=== PATIENT | male | born 1955 | race Caucasian/White ===

== ENCOUNTER 2016-10-25 16:38 | Outpatient (CLI) | payer MEDICAID | END 2016-10-25 16:39 | disposition critical access hospital (66) | DX: R46.4 Slowness and poor responsiveness (principal) | CPT/HCPCS: A0425; A0427 ==

== ENCOUNTER 2016-10-25 17:14 | Inpatient (IN) | payer MEDICAID ==
[2016-10-25] MEDS ORDERED: diazePAM INJ 5 MG/ML SYRINGE IVP STA ×3 (17:20→18:39)
[2016-10-25] MEDS ORDERED: FOLIC ACID INJ 1 MG, THIAMINE INJ 100 MG, MAGNESIUM SULFATE 2 GM, MULTIVITAMIN 10 ML in... IV STA ×5 (17:20)
[2016-10-25] MEDS ORDERED: diazePAM INJ 5 MG/ML SYRINGE ONE ×3 (17:33→18:59)
[2016-10-25] MEDS ORDERED: MAGNESIUM SULFATE 2 GRAM 50 ML IV ONE ×2 (17:35→21:23)
[2016-10-25] MEDS ORDERED: THIAMINE 100 MG/1 ML 2 ML MDV ONE (17:35)
[2016-10-25] MEDS ORDERED: DEXTROSE 5%-0.45% NACL 1,000 ML IV ONE (18:15)
[2016-10-25] MEDS ORDERED: ONDANSETRON ODT 4 MG TABLET TL PRN (21:20)
[2016-10-25] MEDS ORDERED: ONDANSETRON 4 MG/2 ML VIAL IVP PRN (21:20)
[2016-10-25] MEDS ORDERED: ACETAMINOPHEN 325 MG TABLET PO PRN (21:20)
[2016-10-25] MEDS ORDERED: chlordiazePOXIDE 25 MG CAPSULE PO PRN (21:23)
[2016-10-25] MEDS ORDERED: LORazepam 2 MG/ML SYRINGE IVP PRN (21:23)
[2016-10-25] MEDS ORDERED: DEXTROSE 5%-0.9% NACL 1,000 ML IV SCH (22:00)
[2016-10-25] MEDS: SODIUM CHLORIDE FLUSH 0.9% 10 ML SYRINGE IVP SCH (22:40)
[2016-10-25] MEDS: FAMOTIDINE 20 MG TABLET PO SCH (22:40)
[2016-10-26] MEDS: diazePAM 5 MG TABLET PO PRN ×3 (00:24→11:28)
[2016-10-26] MEDS: SODIUM CHLORIDE FLUSH 0.9% 10 ML SYRINGE IVP SCH ×3 (05:58→21:05)
[2016-10-26] MEDS ORDERED: MULTIVITAMIN 10 ML, THIAMINE INJ 100 MG, FOLIC ACID INJ 1 MG in SODIUM CHLORIDE 0.9% 1,... IV SCH (09:00)
[2016-10-26] MEDS ORDERED: FAMOTIDINE 20 MG TABLET PO SCH (09:00)
[2016-10-26] MEDS: FAMOTIDINE 20 MG TABLET PO SCH (09:19)
[2016-10-26] MEDS ORDERED: FOLIC ACID 1 MG TABLET PO SCH (10:00)
[2016-10-26] MEDS ORDERED: MULTIVITAMIN TABLET PO SCH (10:00)
[2016-10-26] MEDS: THIAMINE 100 MG TABLET PO SCH (10:27)
[2016-10-26] MEDS: NICOTINE 21 MG PATCH TOP SCH (10:27)
[2016-10-26] MEDS: POLYETHYLENE GLYCOL 3350 17 GM PACKET PO SCH (10:34)
[2016-10-26] MEDS: HYDROcod/ACETAM 5/325 MG TABLET PO PRN ×2 (15:27→20:10)
[2016-10-26] MEDS: SODIUM CHLORIDE FLUSH 0.9% 10 ML SYRINGE IVP PRN (17:46)
[2016-10-26] MEDS: diazePAM INJ 5 MG/ML SYRINGE IVP PRN (17:47)
[2016-10-27] MEDS: SODIUM CHLORIDE FLUSH 0.9% 10 ML SYRINGE IVP SCH ×3 (06:43→22:32)
[2016-10-27] MEDS ORDERED: POTASSIUM PHOSPHATE 21 MMOL in SODIUM CHLORIDE 0.9% 250 ML IV ONE (08:22)
[2016-10-27] MEDS: FAMOTIDINE 20 MG TABLET PO SCH (08:30)
[2016-10-27] MEDS: THIAMINE 100 MG TABLET PO SCH (08:30)
[2016-10-27] MEDS: NICOTINE 21 MG PATCH TOP SCH (08:30)
[2016-10-27] MEDS: POLYETHYLENE GLYCOL 3350 17 GM PACKET PO SCH (08:32)
[2016-10-27] MEDS: MULTIVITAMIN 10 ML, THIAMINE INJ 100 MG, FOLIC ACID INJ 1 MG in SODIUM CHLORIDE 0.9% 1,... IV SCH (08:32)
[2016-10-27] MEDS ORDERED: MAGNESIUM SULFATE 2 GRAM 50 ML IV ONE (14:30)
[2016-10-27] MEDS ORDERED: MAGNESIUM SULFATE 2 GM in SODIUM CHLORIDE 0.9% 50 ML IV ONE (14:30)
[2016-10-28] MEDS ORDERED: MIN OIL/DIMETHICON/COCONUT OIL 92 GM TUBE TOP PRN (00:34)
[2016-10-28] MEDS: SODIUM CHLORIDE FLUSH 0.9% 10 ML SYRINGE IVP PRN ×2 (05:54→20:42)
[2016-10-28] MEDS: SODIUM CHLORIDE FLUSH 0.9% 10 ML SYRINGE IVP SCH ×3 (05:54→20:42)
[2016-10-28] MEDS ORDERED: POTASSIUM CHLORIDE 20 MEQ TABLET PO ONE (08:00)
[2016-10-28] MEDS ORDERED: DOCUSATE SODIUM 250 MG CAPSULE PO ONE (08:30)
[2016-10-28] MEDS ORDERED: SENNA 8.6 MG TABLET PO ONE (08:30)
[2016-10-28] MEDS: MULTIVITAMIN 10 ML, THIAMINE INJ 100 MG, FOLIC ACID INJ 1 MG in SODIUM CHLORIDE 0.9% 1,... IV SCH (08:31)
[2016-10-28] MEDS: POTASSIUM CHLORIDE 10 MEQ CAPSULE PO SCH (08:37)
[2016-10-28] MEDS: THIAMINE 100 MG TABLET PO SCH (08:37)
[2016-10-28] MEDS: FAMOTIDINE 20 MG TABLET PO SCH (08:38)
[2016-10-28] MEDS: NICOTINE 21 MG PATCH TOP SCH (08:38)
[2016-10-28] MEDS: POLYETHYLENE GLYCOL 3350 17 GM PACKET PO SCH (08:39)
[2016-10-28] MEDS: MAGNESIUM SULFATE 2 GRAM 50 ML IV SCH ×2 (10:44→11:54)
[2016-10-28] MEDS ORDERED: POTASSIUM PHOSPHATE 21 MMOL in SODIUM CHLORIDE 0.9% 250 ML IV ONE (11:00)
[2016-10-28] MEDS: diazePAM INJ 5 MG/ML SYRINGE IVP PRN (20:42)
[2016-10-29] MEDS: diazePAM INJ 5 MG/ML SYRINGE IVP PRN ×2 (01:14→20:23)
[2016-10-29] MEDS: SODIUM CHLORIDE FLUSH 0.9% 10 ML SYRINGE IVP PRN ×2 (01:14→20:23)
[2016-10-29] MEDS: SODIUM CHLORIDE FLUSH 0.9% 10 ML SYRINGE IVP SCH ×3 (05:57→20:23)
[2016-10-29] MEDS ORDERED: MAGNESIUM HYDROXIDE 2,400 MG/30 ML UDC PO ONE (09:00)
[2016-10-29] MEDS: POTASSIUM CHLORIDE 10 MEQ CAPSULE PO SCH (10:00)
[2016-10-29] MEDS: THIAMINE 100 MG TABLET PO SCH (10:01)
[2016-10-29] MEDS: FAMOTIDINE 20 MG TABLET PO SCH (10:01)
[2016-10-29] MEDS: SENNA 8.6 MG TABLET PO SCH (10:01)
[2016-10-29] MEDS: POLYETHYLENE GLYCOL 3350 17 GM PACKET PO SCH (10:02)
[2016-10-29] MEDS: MULTIVITAMIN 10 ML, THIAMINE INJ 100 MG, FOLIC ACID INJ 1 MG in SODIUM CHLORIDE 0.9% 1,... IV SCH (10:02)
[2016-10-29] MEDS: DOCUSATE SODIUM 250 MG CAPSULE PO SCH (10:15)
[2016-10-29] MEDS: NICOTINE 21 MG PATCH TOP SCH (10:16)
[2016-10-30] MEDS: SODIUM CHLORIDE FLUSH 0.9% 10 ML SYRINGE IVP PRN (01:42)
[2016-10-30] MEDS: diazePAM INJ 5 MG/ML SYRINGE IVP PRN ×2 (01:42→06:11)
[2016-10-30] MEDS: SODIUM CHLORIDE FLUSH 0.9% 10 ML SYRINGE IVP SCH ×2 (06:12→08:36)
[2016-10-30] MEDS ORDERED: LACTATED RINGERS 1,000 ML IV ONE (07:45)
[2016-10-30] MEDS ORDERED: POTASSIUM CHLORIDE 20 MEQ TABLET PO SCH (08:00)
[2016-10-30] MEDS ORDERED: MAGNESIUM SULFATE 2 GM in SODIUM CHLORIDE 0.9% 100 ML IV ONE (08:00)
[2016-10-30] MEDS: NICOTINE 21 MG PATCH TOP SCH (08:31)
[2016-10-30] MEDS: DOCUSATE SODIUM 250 MG CAPSULE PO SCH (08:32)
[2016-10-30] MEDS: FAMOTIDINE 20 MG TABLET PO SCH (08:32)
[2016-10-30] MEDS: POTASSIUM CHLORIDE 10 MEQ CAPSULE PO SCH (08:32)
[2016-10-30] MEDS: SENNA 8.6 MG TABLET PO SCH (08:32)
[2016-10-30] MEDS: THIAMINE 100 MG TABLET PO SCH (08:32)
[2016-10-30] MEDS: POLYETHYLENE GLYCOL 3350 17 GM PACKET PO SCH (08:32)
[2016-10-30] MEDS ORDERED: MAGNESIUM SULFATE 2 GRAM 50 ML IV ONE (09:00)
[2016-10-30] MEDS: MULTIVITAMIN 10 ML, THIAMINE INJ 100 MG, FOLIC ACID INJ 1 MG in SODIUM CHLORIDE 0.9% 1,... IV SCH (10:55)
== END 2016-10-30 11:57 | disposition home or self-care (01) | DRG 896 ==
DX: F10.239 Alcohol dependence with withdrawal, unspecified (principal); E43 Unspecified severe protein-calorie malnutrition; E87.2 Acidosis; Z68.1 Body mass index [BMI] 19.9 or less, adult; E16.1 Other hypoglycemia; I95.9 Hypotension, unspecified; T73.0XXA Starvation, initial encounter; T51.0X1A Toxic effect of ethanol, accidental (unintentional), initial encounter; R74.0 Nonspecific elevation of levels of transaminase and lactic acid dehydrogenase [LDH]; R74.8 Abnormal levels of other serum enzymes; F32.9 Major depressive disorder, single episode, unspecified; J44.9 Chronic obstructive pulmonary disease, unspecified; K76.0 Fatty (change of) liver, not elsewhere classified; L89.42 Pressure ulcer of contiguous site of back, buttock and hip, stage 2; Y90.4 Blood alcohol level of 80-99 mg/100 ml; F17.210 Nicotine dependence, cigarettes, uncomplicated; Z66 Do not resuscitate; X58.XXXA Exposure to other specified factors, initial encounter; S00.83XD Contusion of other part of head, subsequent encounter; W19.XXXD Unspecified fall, subsequent encounter; Z91.81 History of falling

== ENCOUNTER 2017-05-08 06:32 | Outpatient (CLI) | payer MEDICAID | END 2017-05-08 06:33 | disposition E | LOC: EMS 06:32 | PROVIDERS: ATTEND Surgery ==